=== PATIENT | female | born 1990 | race African-American/Black ===

== ENCOUNTER 2017-10-11 17:50 | Emergency (ER) | payer BC ==
[2017-10-11 17:59] VITALS: BP 150/107
[2017-10-11] MEDS ORDERED: diphenhydrAMINE 50 MG/ML SDV IVPUSH ONE (18:10)
[2017-10-11] MEDS ORDERED: Sodium Chloride 0.9% 10 ML Syringe FLUSH PRN (18:10)
[2017-10-11] MEDS ORDERED: Metoclopramide 10 MG/2 ML SDV IVPUSH ONE (18:11)
[2017-10-11] MEDS ORDERED: Ketorolac 30 MG/ML SDV IVPUSH ONE (18:12)
[2017-10-11] MEDS ORDERED: Sodium Chloride 0.9% 1,000 ML IV SCH (18:15)
--- NOTE | 2017-10-11 18:17 | EDM.PDOC ---
ED HPI GENERAL MEDICAL PROBLEM - General Chief Complaint: Headache Stated Complaint: HEADACHE Time Seen by Provider: 10/11/17 18:07 Source of Information: Reports: Patient History Limitations: Reports: No Limitations - History of Present Illness INITIAL COMMENTS - FREE TEXT/NARRATIVE: The patient presents with a headache. She has a history of migraines. She is 8 weeks with a LNMP of August 09. She has nausea but no vomiting. She has no fever or chills. She has no chest pain. She does have photophobia and some blurred vision. This is like her other migraines but this one came back sooner then others. She had a migraine earlier in the week. Usually they will recur every few months. Onset: Gradual Duration: Hour(s): Location: Reports: Head Quality: Reports: Sharp Severity: Severe Improves with: Reports: None Worsens with: Reports: None Associated Symptoms: Reports: Headaches, Nausea/Vomiting. Denies: Chest Pain, Cough, Fever/Chills, Shortness of Breath Frontal Headache Pain Score (Numeric/FACES): 9 - Related Data Allergies Allergy/AdvReac Type Severity Reaction Status Date / Time No Known Allergies Allergy Verified 10/11/17 17:55 Home Meds: Home Meds . 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 Denies: Abdominal Pain, Vomiting : Reports: No Symptoms Musculoskeletal: Reports: No Symptoms Skin: Reports: No Symptoms Neurological: Reports: Headache - Physical Exam Exam: See Below Exam Limited By: No Limitations General Appearance: Alert, No Apparent Distress Ears: Normal External Exam Nose: Normal Inspection Head Exam: Atraumatic, Normocephalic Neck: Normal Inspection Respiratory/Chest: No Respiratory Distress, Lungs Clear, Normal Breath Sounds Cardiovascular: Regular Rate, Rhythm, No Edema, No Murmur GI/Abdominal: Soft, Non-Tender, No Organomegaly, No Mass Neuro Exam (Abbreviated): Alert, Oriented, No Motor/Sensory Deficits Course - Vital Signs Last Recorded V/S: Last Vital Signs Temp 99.1 F 10/11/17 17:56 Pulse 82 10/11/17 17:56 Resp 16 10/11/17 17:56 BP 150/107 H 10/11/17 17:56 Pulse Ox 100 10/11/17 17:56 - Orders/Labs/Meds Orders: Active Orders 24 hr Category Date Time Status Peripheral IV Care [RC] . DIRECTED Care 10/11/17 18:10 Active Sodium Chloride 0.9% [Normal Saline] 1,000 ml Med 10/11/17 18:15 Active IV ASDIRECTED Sodium Chloride 0.9% [Saline Flush] Med 10/11/17 18:10 Active 10 ml FLUSH ASDIRECTED PRN Peripheral IV Insertion Adult [OM.PC] Routine Oth 10/11/17 18:10 Ordered Medication Orders Sodium Chloride (Normal Saline) 1,000 mls @ 150 mls/hr IV ASDIRECTED CALLI Last Admin: 10/11/17 18:30 Dose: 150 mls/hr Sodium Chloride (Saline Flush) 10 ml FLUSH ASDIRECTED PRN PRN Reason: Keep Vein Open Last Admin: 10/11/17 18:33 Dose: 10 ml Meds: Medications Generic Name Dose Route Start Last Admin Trade Name Freq PRN Reason Stop Dose Admin Sodium Chloride 1,000 mls @ 150 mls/hr 10/11/17 18:15 10/11/17 18:30 Normal Saline IV 150 mls/hr ASDIRECTED CALLI Administration Sodium Chloride 10 ml 10/11/17 18:10 10/11/17 18:33 Saline Flush FLUSH 10 ml ASDIRECTED PRN Administration Keep Vein Open Discontinued Medications Generic Name Dose Route Start Last Admin Trade Name Freq PRN Reason Stop Dose Admin Diphenhydramine HCl 50 mg 10/11/17 18:10 10/11/17 18:34 Benadryl IVPUSH 10/11/17 18:11 50 mg ONETIME ONE Administration Ketorolac Tromethamine 30 mg 10/11/17 18:12 10/11/17 18:33 Toradol IVPUSH 10/11/17 18:13 30 mg ONETIME ONE Administration Metoclopramide HCl 10 mg 10/11/17 18:11 10/11/17 18:30 Reglan IVPUSH 10/11/17 18:12 10 mg ONETIME ONE Administration - Re-Assessments/Exams Free Text/Narrative Re-Assessment/Exam: 10/11/17 18:18 I ordered an IV NS at 150mL/hr, toradol 30mg IV, benadryl 50mg IV, and reglan 10mg IV. She is early in her . The toradol is okay. 10/11/17 19:08 She feels much better. I will discharge her home. Departure - Departure Time of Disposition: 19:10 Disposition: Home, Self-Care 01 Condition: Good Clinical Impression: Migraine - Discharge Information Referrals: PCP,None [Primary Care Provider] - Felisa Beach MD [Physician] - 1 Week Forms: ED Department Discharge Additional Instructions: Go home and rest in a dark quiet room. Take tylenol for any pain. Please return if you are worse. - My Orders Last 24 Hours: My Active Orders 10/11/17 18:10 Peripheral IV Care [RC] . DIRECTED Sodium Chloride 0.9% [Saline Flush] 10 ml FLUSH ASDIRECTED PRN Peripheral IV Insertion Adult [OM.PC] Routine 10/11/17 18:15 Sodium Chloride 0.9% [Normal Saline] 1,000 ml IV ASDIRECTED - Assessment/Plan Last 24 Hours: My Active Orders 10/11/17 18:10 Peripheral IV Care [RC] . DIRECTED Sodium Chloride 0.9% [Saline Flush] 10 ml FLUSH ASDIRECTED PRN Peripheral IV Insertion Adult [OM.PC] Routine 10/11/17 18:15 Sodium Chloride 0.9% [Normal Saline] 1,000 ml IV ASDIRECTED
== END 2017-10-11 19:17 | disposition home or self-care (01) ==
LOC: JD.ED 17:50
DX: O99.351 Diseases of the nervous system complicating pregnancy, first trimester (principal); G43.909 Migraine, unspecified, not intractable, without status migrainosus; Z3A.08 8 weeks gestation of pregnancy
CPT/HCPCS: 96361; 96374; 96375; 99284; J1200; J1885; J2765; J7040; J7050

== ENCOUNTER 2017-11-13 18:34 | Emergency (ER) | payer BC ==
--- NOTE | 2017-11-13 19:19 | EDM.PDOC ---
ED HPI GENERAL MEDICAL PROBLEM - General Chief Complaint: [employer] Problem Stated Complaint: SPOTTING 14 WEEKS PG Time Seen by Provider: 11/13/17 19:00 Source of Information: Reports: Patient History Limitations: Reports: No Limitations - History of Present Illness INITIAL COMMENTS - FREE TEXT/NARRATIVE: Patient is a 27-year-old female presents ED complaining of vaginal spotting. Patient is approximately 14 weeks . Due date is potentially April. Date of conception is August 22 at 2017. Patient states today at approximately 1500 hrs. she noticed some faint spotting while urinating. Patient took a nap awoke with the bathroom again and noticed some more bleeding present. Thus prompting examination to the ED. She does have some sharp intermittent pelvic pain. She's been recently diagnosed with the UTI and is on an unknown antibiotic. She was diagnosis past and started on . Patient states she has not had recent sexual intercourse. She has no history of any STDs. history 2 para 0 miscarriages 0 abortions 1. Patient sees Dr. Pedersen [facility]ER. She has not had ultrasound obtained yet. Only heart tones. She is on vitamins and a antibiotic. No additional surgical history.She does not smoke, use recreational drugs, or alcohol. Middle Abdomen Pain Score (Numeric/FACES): 1 - Related Data Allergies Allergy/AdvReac Type Severity Reaction Status Date / Time No Known Allergies Allergy Verified 11/13/17 19:23 Home Meds: Home Meds PNV95/Ferrous Fumarate/FA [ Tablet] 1 tab PO DAILY 11/13/17 [History] Past Medical History - Past Health History Medical/Surgical History: Denies Medical/Surgical History [employer] T[employer]ER History: Reports: Neurological History: Reports: Migraines Social & Family History - Family History Family Medical History: Noncontributory - Tobacco Use Smoking Status *Q: Never Smoker - Caffeine Use Caffeine Use: Reports: Coffee, Soda - Recreational Drug Use Recreational Drug Use: No ED ROS GENERAL - Review of Systems Review Of Systems: ROS reveals no pertinent complaints other than HPI. ED EXAM - Physical Exam Exam: See Below Exam Limited By: No Limitations General Appearance: Alert, WD/WN, No Apparent Distress Ears: Hearing Grossly Normal Nose: Normal Inspection Throat/Mouth: Normal Voice, No Airway Compromise Neck: Normal Inspection, Supple Respiratory/Chest: No Respiratory Distress, Lungs Clear, Normal Breath Sounds, No Accessory Muscle Use, Chest Non-Tender Cardiovascular: Normal Peripheral Pulses, Regular Rate, Rhythm, No Murmur GI/Abdominal Exam: Normal Bowel Sounds, Soft, Non-Tender, No Organomegaly, Distended Extremities: Normal Inspection Neurological: Alert, Oriented, CN II-XII Intact, Normal Cognition, No Motor/ Sensory Deficits Psychiatric: Normal Affect, Normal Mood Skin Exam: Warm, Dry, Intact, Normal Color, No Rash Course - Orders/Labs/Meds Orders: Active Orders 24 hr Category Date Time Status OB Ltd 1 or More Fetus [US] Stat Exams 11/13/17 19:13 Taken ABO/RH TYPE [BBK] Stat Lab 11/13/17 19:25 Results CULTURE URINE [] Stat Lab 11/13/17 19:19 Received PATIENT RETYPE [BBK] Stat Lab 11/13/17 19:25 Results Labs: Laboratory Tests 11/13/17 11/13/17 11/13/17 Range/Units 19:19 19:25 19:25 WBC 7.71 (3.98-10.04) K/mm3 RBC 3.90 L (3.98-5.22) M/mm3 Hgb 11.1 L (11.2-15.7) gm/L Hct 32.8 L (34.1-44.9) % MCV 84.1 (79.4-94.8) fl MCH 28.5 (25.6-32.2) pg MCHC 33.8 (32.2-35.5) g/dl RDW Std Deviation 40.8 (36.4-46.3) fL Plt Count 265 (182-369) K/mm3 MPV 8.8 L (9.4-12.3) fl Neutrophils % (Manual) 60 (40-60) % Band Neutrophils % 0 (0-10) % Lymphocytes % (Manual) 36 (20-40) % Atypical Lymphs % 0 % Monocytes % (Manual) 4 (2-10) % Eosinophils % (Manual) 0 L (0.7-5.8) % Basophils % (Manual) 0 L (0.1-1.2) Platelet Estimate Adequate Plt Morphology Comment Normal Hypochromasia 1+ slight Anisocytosis 1+ slight RBC Morph Comment Not Reportable Sodium 136 (136-145) mEq/L Potassium 3.7 (3.5-5.1) mEq/L Chloride 102 (98-107) mEq/L Carbon Dioxide 24 (21-32) mEq/L Anion Gap 13.7 (5-15) BUN 7 (7-18) mg/dL Creatinine 0.7 (0.55-1.02) mg/dL Est Cr Clr Drug Dosing 114.01 mL/min Estimated GFR (MDRD) > 60 (>60) mL/min BUN/Creatinine Ratio 10.0 L (14-18) Glucose 78 (74-106) mg/dL Calcium 9.1 (8.5-10.1) mg/dL Total Bilirubin 0.3 (0.2-1.0) mg/dL AST 18 (15-37) U/L ALT 26 (14-59) U/L Alkaline Phosphatase 40 L (46-116) U/L Total Protein 7.3 (6.4-8.2) g/dl Albumin 3.6 (3.4-5.0) g/dl Globulin 3.7 gm/dL Albumin/Globulin Ratio 1.0 (1-2) HCG, Quant 88745.0 mIU/mL Urine Color Light yellow (Yellow) Urine Appearance Slt cloudy H (Clear) Urine pH 8.0 (5.0-8.0) Ur Specific [place] 1.020 (1.005-1.030) Urine Protein Trace H (Negative) Urine Glucose (UA) Negative (Negative) Urine Ketones 2+ H (Negative) Urine Occult Blood 2+ H (Negative) Urine Nitrite Negative (Negative) Urine Bilirubin Negative (Negative) Urine Urobilinogen 0.2 (0.2-1.0) Ur Leukocyte Esterase 2+ H (Negative) Urine RBC 30-40 H (0-5) /hpf Urine WBC 40-50 H (0-5) /hpf Ur Epithelial Cells 10-20 H (0-5) /hpf Urine Bacteria Few (FEW) /hpf Urine Mucus Not seen (FEW) /hpf Blood Type 11/13/17 Range/Units 19:25 WBC (3.98-10.04) K/mm3 RBC (3.98-5.22) M/mm3 Hgb (11.2-15.7) gm/L Hct (34.1-44.9) % MCV (79.4-94.8) fl MCH (25.6-32.2) pg MCHC (32.2-35.5) g/dl RDW Std Deviation (36.4-46.3) fL Plt Count (182-369) K/mm3 MPV (9.4-12.3) fl Neutrophils % (Manual) (40-60) % Band Neutrophils % (0-10) % Lymphocytes % (Manual) (20-40) % Atypical Lymphs % % Monocytes % (Manual) (2-10) % Eosinophils % (Manual) (0.7-5.8) % Basophils % (Manual) (0.1-1.2) Platelet Estimate Plt Morphology Comment Hypochromasia Anisocytosis RBC Morph Comment Sodium (136-145) mEq/L Potassium (3.5-5.1) mEq/L Chloride (98-107) mEq/L Carbon Dioxide (21-32) mEq/L Anion Gap (5-15) BUN (7-18) mg/dL Creatinine (0.55-1.02) mg/dL Est Cr Clr Drug Dosing mL/min Estimated GFR (MDRD) (>60) mL/min BUN/Creatinine Ratio (14-18) Glucose (74-106) mg/dL Calcium (8.5-10.1) mg/dL Total Bilirubin (0.2-1.0) mg/dL AST (15-37) U/L ALT (14-59) U/L Alkaline Phosphatase (46-116) U/L Total Protein (6.4-8.2) g/dl Albumin (3.4-5.0) g/dl Globulin gm/dL Albumin/Globulin Ratio (1-2) HCG, Quant mIU/mL Urine Color (Yellow) Urine Appearance (Clear) Urine pH (5.0-8.0) Ur Specific [place] (1.005-1.030) Urine Protein (Negative) Urine Glucose (UA) (Negative) Urine Ketones (Negative) Urine Occult Blood (Negative) Urine Nitrite (Negative) Urine Bilirubin (Negative) Urine Urobilinogen (0.2-1.0) Ur Leukocyte Esterase (Negative) Urine RBC (0-5) /hpf Urine WBC (0-5) /hpf Ur Epithelial Cells (0-5) /hpf Urine Bacteria (FEW) /hpf Urine Mucus (FEW) /hpf Blood Type A POSITIVE - Re-Assessments/Exams Free Text/Narrative Re-Assessment/Exam: No IV required. Spotting is minimal. Will obtain basic labs including CBC, chem 14, hCG, ABO/Rh type, UA, and OB transvaginal ultrasound. Labs reviewed: White blood cell count 7.71, hemoglobin 11.1, platelet count 265 , chemistry panel is essentially normal. HCG quantitative 45,209. UA slightly cloudy, trace protein, 2+ ketones, occult blood 2+, leukocyte esterase 2+, urine rbc's 30-40, urine wbc's 40-50, urine epithelial cells 10- 20. Contaminated specimen. I have ordered a urine culture. She just recently started on antibiotic of unknown name. Do not have the results of the ultrasound at this point. Patient is requesting to be discharged home. I will have her follow-up with [facility] [employer] specialist tomorrow morning for results. If any significant concerns she'll be notified this evening. Bleeding has been minimal. Discharge instructions as documented. The patient remained hemodynamically stable while under my care in the E.D. I discussed the concerning symptoms for which to return to the E.D. with the patient. The patient verbalized understanding. All questions were answered. 11/13/17 21:05 OB Ultrasound IMPRESSION: 1. Gestational age by ultrasound 15 weeks 0 days. 2. RADHA May 07.. 3. Estimated weight 105 g. 92 percentile. 4. 2 chorioamniotic separations noted.. 11/13/17 21:[address] Jane. suggested close monitoring. Nothing we can do at this point. May resolve or worsened increasing risk for labor. He will speak with Dr. Angelo tomorrow in regards to patients condition. Agrees with followup with Dr. Angelo tomorrow or the next day. 11/13/17 21:12 I have attempted to call the patient at the numbers provided the home phone stated mail box is full. The additional number was her work number. Departure - Departure Time of Disposition: 20:33 Disposition: Home, Self-Care 01 Condition: Good Clinical Impression: Vaginal spotting, Vaginal bleeding during - Discharge Information Instructions: Vaginal Bleeding During , Second Trimester, [id number] Referrals: Kacy Angelo MD [Primary Care Provider] - Forms: ED Department Discharge Additional Instructions: Please continue taking the antibiotic as prescribed. You'll be notified if any significant and abnormalities noted on ultrasound. Please follow up with [facility] specialist tomorrow or for reevaluation. Return to the ED if you develop any new or worsening symptoms as discussed. - My Orders Last 24 Hours: My Active Orders 11/13/17 19:13 OB Ltd 1 or More Fetus [US] Stat 11/13/17 19:19 CULTURE URINE [RM] Stat 11/13/17 19:25 ABO/RH TYPE [BBK] Stat PATIENT RETYPE [BBK] Stat - Assessment/Plan Last 24 Hours: My Active Orders 11/13/17 19:13 OB Ltd 1 or More Fetus [US] Stat 11/13/17 19:19 CULTURE URINE [RM] Stat 11/13/17 19:25 ABO/RH TYPE [BBK] Stat PATIENT RETYPE [BBK] Stat
--- NOTE | 2017-11-14 13:40 | US ---
Limited obstetrical ultrasound: Multiple real-time images were obtained. Comparison: No previous obstetrical ultrasound is available. Dates: LMP: LMP given as 08/08/17, RADHA 05/15/18, gestational age 13 weeks 6 days Current ultrasound: RADHA 05/07/18, gestational age 15 weeks 0 days presentation: Mobile Placenta: Posterior with no findings of placenta previa Amniotic fluid: Within normal limits Evidence of chorioamnionic separation is noted. Maternal ovaries appear unremarkable. Measurements: BPD: 2.89 cm - 15 weeks 2 days Head circumference: 10.95 cm - 15 weeks 2 days Abdominal circumference: 9.11 cm - 15 weeks 2 days Femur length: 1.39 cm - 14 weeks 1 day Estimated weight: 105 g (0 lbs. 4 oz.), estimated weight at 92nd percentile Heart rate: 168 bpm Cervical length: 3.3 cm Impression: 1. Single intrauterine fetus. Dates as noted above. 2. Chorioamnionic separation. No other complicating process is seen. Diagnostic code #3 I agree with preliminary report from [facility], finalized at 11/13/17, 9:44 PM Central Time
== END 2017-11-13 20:44 | disposition home or self-care (01) ==
LOC: JD.ED 18:34
DX: O20.9 Hemorrhage in early pregnancy, unspecified (principal); Z3A.14 14 weeks gestation of pregnancy; Z79.899 Other long term (current) drug therapy
CPT/HCPCS: 36415; 76815; 76815-26; 80053; 81001; 84702; 85007; 85027; 86900; 86901; 87086; 87088; 99283; 99284-25